=== PATIENT | female | born 1970 | race Caucasian/White ===

== ENCOUNTER 2021-03-28 22:33 | Emergency (ER) | payer OTHER ==
[~2021-03-28] VITALS: Ht 152.4 cm; Wt 44.5 kg
[2021-03-29 01:55] VITALS: BP 122/71
== END 2021-03-29 02:03 | disposition home or self-care (01) ==
LOC: M.ERS 22:33
DX: M79.661 Pain in right lower leg (principal); R23.4 Changes in skin texture; Z59.00 Homelessness unspecified